=== PATIENT | female | born 1955 | race Caucasian/White ===

== ENCOUNTER 2018-10-20 09:07 | Inpatient (IN) ==
[2018-10-20] MEDS ORDERED: Aspirin 81 MG TAB.CHEW PO ONE (09:17)
[2018-10-20 09:40] LABS: Basophils % 0.5 %; Eosinophils # 0.2 K/mcL (0.0-0.6); Hemoglobin 14.3 g/dL (11.5-15.4); Immature Granulocytes % 0.9 % (0-4); Lymphocytes # 3.2 K/mcL (0.6-4.6); Lymphocytes % 40.2 %; Mean Corpuscular HGB Conc 31.8 g/dL (31.6-35.5); Mean Corpuscular Hemoglobin 28.6 pg (28.0-33.3); Mean Platelet Volume 10.3 fL (9.4-12.4); Monocytes # 0.7 K/mcL (0.0-1.3); Monocytes % 8.5 %; Neutrophils # 3.9 K/mcL (1.6-8.9); Platelet Count 197 K/mcL (140-400); Segmented Neutrophils % 47.9 %
--- NOTE | 2018-10-20 09:44 | Emergency Department Note ---
Disposition Clinical Impression: NSTEMI (non-ST elevated myocardial infarction) Disposition: Admitted As Inpatient Condition: Good Time of Disposition: 10:20 General Adult HPI - General Stated complaint: cp Time Seen by Provider: 10/20/18 09:12 Source: patient, family, EMS Mode of arrival: EMS Limitations: no limitations Nursing Notes Reviewed: Yes Vital Signs Reviewed: Yes - History of Present Illness HPI Narrative: Patient is a 63-year-old female that presents the emergency department with chest pain. Patient states that this is been ongoing since this morning. Patient said last night she developed pain in her teeth and this morning when she got up she had chest pain that radiated to both arms. Patient states that she has some mild shortness of breath and feels sick to her stomach but has not vomited. Patient denies any diaphoresis. Patient denies any worsening with exertion. Patient states that she had had a normal stress test sometime this past winter. Patient states that she has never had any cardiac issues or stents or cardiac catheterization that is been required. Patient states that she does have a history of diabetes, hypercholesterolemia and a family history of CA. Pain Scale: 2 - Related Data Home Medications Medication Instructions Recorded Confirmed ALPRAZolam [Xanax 0.25 MG Tablet] 1 tab PO PRN PRN 06/13/17 10/20/18 Glimepiride [Amaryl] 4 mg PO BID 06/13/17 10/20/18 Insulin ASPART [NovoLOG] 20 unit SQ TIDWM PRN 10/20/18 10/20/18 Allergies Allergy/AdvReac Type Severity Reaction Status Date / Time ciprofloxacin [From Cipro] Allergy Rash Verified 10/20/18 09:14 All systems ED: reviewed and negative except as stated. Constitutional: Denies: fever Cardiovascular: Reports: chest pain Respiratory: Reports: dyspnea Gastrointestinal: Reports: nausea. Denies: vomiting, diarrhea Genitourinary: Denies: urgency, dysuria, frequency Neurological: Denies: weakness, numbness, paresthesias Past Medical History - Past Medical History Medical history: Reports: diabetes, hyperlipidemia, hypertension Surgical history: Reports: cholecystectomy Psychiatric history: Reports: anxiety ACTIVE DIRECTORY SPECIALIST history: Reports: no ACTIVE DIRECTORY SPECIALIST history - Social History Smoking Status: Never smoker Smokeless Tobacco Status: No Alcohol use: Reports: none Drug use: Reports: none Physical Exam - General Limitations: no limitations General appearance: alert, in no apparent distress - Head Head exam: atraumatic, normocephalic - Eye Eye exam: Present: normal appearance, EOMI - Neck Neck exam: Present: normal inspection, full ROM, trachea midline - Respiratory Respiratory exam: Present: normal lung sounds bilaterally. Absent: respiratory distress, wheezes - Cardiovascular Cardiovascular exam: Present: regular rate, normal rhythm, normal heart sounds, +S1, +S2 - Abdominal Exam Abdominal exam: Present: soft, Non-Tender, normal bowel sounds - Neurological Exam Neurological exam: Present: alert, oriented X3 - Psychiatric Psychiatric exam: Present: normal affect, normal mood - Skin Skin exam: Present: warm, dry, intact Course Vital Signs Temperature 98 F 10/20/18 09:14 Pulse Rate 71 10/20/18 09:14 Respiratory Rate 17 10/20/18 09:14 Blood Pressure 150/89 10/20/18 09:14 O2 Sat by Pulse Oximetry 98 10/20/18 09:14 Temperature 98 F 10/20/18 09:14 Pulse Rate 68 10/20/18 10:57 Respiratory Rate 18 10/20/18 10:57 Blood Pressure 135/81 10/20/18 10:57 O2 Sat by Pulse Oximetry 97 10/20/18 10:57 Oxygen Delivery Oxygen Delivery Room Air Medical Decision Making - MDM Narrative Medical decision making narrative: Due the patient is not emergency Department with reports of chest pain we will obtain basic laboratory testing, EKG and chest x-ray. Patient's chest x-ray was negative. EKG showed a sinus rhythm without any acute ischemic changes. The troponin was elevated 0.15. This is new for the patient. Patient did receive nitroglycerin here in the emergency department had complete resolution of her chest pain. Patient family are in agreement with the patient being admitted to the hospital. Patient will be started on ACS low-dose heparin and will be admitted to the medical service. Remainder of her laboratory testing is relatively unremarkable. Called and spoke with the admitting hospitalist Dr. Judd and she is accepted the patient to their service. Patient be admitted to hospital this time for further evaluation and management. - Medical Records Medical records reviewed: Yes I reviewed the patient's medical records. - Lab Data Lab results reviewed: Yes I reviewed the patient's lab results. Result diagrams: 10/21/18 00:39 06/10/19 00:39 Lab Results 10/20/18 10/20/18 10/20/18 Range/Units 09:26 09:26 09:26 WBC 8.0 (4.3-11.1) K/mcL RBC 5.00 H (3.82-4.97) M/mcL Hgb 14.3 (11.5-15.4) g/dL Hct 45.0 H (35.3-44.9) % MCV 90.0 (83.0-100.0) fL MCH 28.6 (28.0-33.3) pg MCHC 31.8 (31.6-35.5) g/dL RDW 14.0 (11.5-14.5) % Plt Count 197 (140-400) K/mcL MPV 10.3 (9.4-12.4) fL Immature Gran % 0.9 (0-4) % Seg Neutrophils % 47.9 % Lymphocytes % 40.2 % Monocytes % 8.5 % Eosinophils % 2.0 % Basophils % 0.5 % Neutrophils # 3.9 (1.6-8.9) K/mcL Lymphocytes # 3.2 (0.6-4.6) K/mcL Monocytes # 0.7 (0.0-1.3) K/mcL Eosinophils # 0.2 (0.0-0.6) K/mcL Basophils # 0.0 (0.0-0.2) K/mcL PT 12.3 H (9.4-12.1) Seconds INR 1.1 APTT 31.2 (26.0-36.0) Seconds D-Dimer 292 (0-500) ng/mLFEU Heparin Anti-Xa, Unfract 0.00 L (0.30-0.70) IU/mL Sodium 136 (136-145) mEq/L Potassium 4.2 (3.5-5.1) mEq/L Chloride 107 (98-107) mEq/L Carbon Dioxide 21 L (23-29) mEq/L BUN 15 (8-23) mg/dL Creatinine 0.81 (0.60-1.20) mg/dL Est GFR ( Amer) > 60 (> 60) Est GFR (Non-Af Amer) > 60 (> 60) BUN/Creatinine Ratio 19 (6-26) Glucose 165 H (70-105) mg/dL Calculated Osmolality 287 (280-300) Calcium 9.4 (8.6-10.3) mg/dL Troponin I 0.15 H* (< 0.04) ng/mL - Radiology Data Radiology results reviewed: Yes I reviewed the patient's radiology results. Chest X-Ray 10/20/18 09:17 IMPRESSION: No acute cardiopulmonary disease. D/ / 10/20/2018 09:45:29 Gurjit Torres MD / Ana Chirinos Interpreting Provider: Gurjit Torres MD - EKG Data EKG #1 EKG attestation: Yes I reviewed and interpreted this EKG. EKG results narrative: EKG shows sinus rhythm at a rate of 73 bpm, NM interval 150, QRS duration 95, QTC of 447. There is no evidence of STEMI on EKG. This is compared to previous EKG on 06/04/17. Attestation Statement - Attestation Attestation: Resident Attestation: I examined this patient and my medical decision making was reviewed with the Resident Physician. I agree with the documented findings, disposition and treatment plan as described except to the extent set forth below. We independently had [id number] contact with the patient.EKG reviewed with resident physician. Agree with documentation. Patient presents for evaluation of chest pain. Patient went to bed last night with pain she describes in her teeth and jaw. Patient will cuff today with chest pain to the center of her chest. Pain was partially relieved with 's nitroglycerin. Patient will be given further nitroglycerin undergo further cardiac evaluation. Patient will likely require admission secondary to risk factors and concern for underlying cardiac disease. No acute distress, regular rate and rhythm, clear to auscultation bilaterally, no swelling to the lower extremities.
[2018-10-20 09:49] LABS: Activated Partial Thrombo Time 31.2 Seconds (26.0-36.0)
[2018-10-20] MEDS: Nitroglycerin 0.4 MG TAB.SUBL SL PRN ×2 (09:50→21:06)
[2018-10-20 10:03] LABS: BUN/Creatinine Ratio 19 (6-26); Blood Urea Nitrogen 15 mg/dL (8-23); Calcium 9.4 mg/dL (8.6-10.3); Carbon Dioxide 21 mEq/L (23-29); Chloride 107 mEq/L (98-107); Glucose 165 mg/dL (70-105); Osmolality,Calculated 287 (280-300); Potassium 4.2 mEq/L (3.5-5.1); Sodium 136 mEq/L (136-145); Troponin I 0.15 ng/mL (< 0.04); eGFR For African Americans > 60 (> 60); eGFR For Non-African Americans > 60 (> 60)
[2018-10-20] MEDS ORDERED: *HR* Heparin 5,000 UNIT/ML VIAL IVP PRN ×2 (10:10)
[2018-10-20] MEDS ORDERED: *HR* Heparin 5,000 UNIT/ML VIAL IVP ONE (10:10)
[2018-10-20 10:31] LABS: INR 1.1; Prothrombin Time 12.3 Seconds (9.4-12.1)
[2018-10-20] MEDS: Heparin 25,000 UNIT/250 ML D5W 25,000 UNIT/250 ML IV.SOLN IVC SCH (10:51)
[2018-10-20] MEDS ORDERED: Naloxone 0.4 MG/ML INJ IVP PRN (13:17)
[2018-10-20] MEDS ORDERED: ALPRAZolam 0.25 MG TABLET PO PRN (13:20)
[2018-10-20] MEDS ORDERED: Dextrose Gel 15 GM/37.5 ML TUBE PO PRN ×2 (13:21)
[2018-10-20] MEDS ORDERED: D5% in Water 1,000 ML IVC PRN (13:21)
[2018-10-20] MEDS ORDERED: *HR* Dextrose 50 % in Water (Syg) 50 ML SYRINGE IVP PRN (13:21)
--- NOTE | 2018-10-20 13:29 | Internal Med History&Physical ---
Date of Encounter: 10/20/18 Time of Encounter: 13:24 Internal Medicine - H&P: HPI Chief complaint: chest pain Admitted From: Home Plans for Post Hospital Care: Home History of present illness: Ms. Llanos is a 63 year old female with PMH HTN and anxiety presented to [facility] on 10/20/18 with complaints of chest pain. She was placed in observation status for further workup and treatment. Information obtained from chart review and patient report. Patient reported experiencing midsternal chest discomfort yesterday evening before she went to bed. 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 She took 2 aspirin and went to bed. When she woke up this morning at 6:00 chest pain was still there along with the lip pain and bilateral arm pain so she took 2 ASA and came to the ER. Still having some mild chest discomfort on my exam. No shortness of breath. Past Med Surg Social Fam HX - Past Medical History Medical history: diabetes, fibromyalgia, hyperlipidemia, hypertension Additional medical history: rosacea. tumor left jaw Psychiatric history: anxiety - Past Surgical History Surgical History: cholecystectomy Additional surgical history: bilateral carple tunnel. jaw surgery with trach - Social History Smoking Status: Never smoker Smokeless Tobacco Status: No Alcohol use: none Drug use: none - Family History Mother Living Status: Age at : 61 Hx Family Cancer: Yes Father Living Status: Age at : 56 Internal Medicine - H&P: Meds ALPRAZolam [Xanax 0.25 MG Tablet] 1 tab PO PRN PRN 06/13/17 [History] Glimepiride [Amaryl] 4 mg PO BID 06/13/17 [History] Insulin ASPART [NovoLOG] 100 unit SQ TIDWM PRN 10/20/18 [History] Allergy/AdvReac Type Severity Reaction Status Date / Time ciprofloxacin [From Cipro] Allergy Rash Verified 10/20/18 09:14 All Systems PM: A 12-system review of systems was performed and is negative for pertinent findings except as documented above in the HPI. - Constitutional Vitals: Temp Pulse Resp BP Pulse Ox 97.4 F L 70 18 138/79 94 10/20/18 11:53 10/20/18 11:53 10/20/18 11:39 10/20/18 11:53 10/20/18 11:53 General appearance: Present: A&O X 3, no acute distress Exam: . - Head Head exam: Present: atraumatic, normocephalic - Eye Eye exam: Present: PERRL, conjuntiva pink, sclera anicteric Pupils: Present: PERRL - Neck Neck exam general surgery: Present: supple, trachea midline. Absent: lymphadenopathy - Respiratory Respiratory exam: Present: CTAB. Absent: accessory muscle use, rales, rhonchi, wheezes - Cardiovascular Cardiovascular exam: Present: RRR, +S1, +S2. Absent: diastolic murmur, gallop, rubs, systolic murmur - GI/Abdominal GI/Abdominal exam: Present: normal bowel sounds, soft, no peritoneal signs. Absent: distended, tenderness - Extremities Exam Extremities exam: Present: warm, radial pulses palpable and symmetrical. Absent: calf tenderness, cyanotic, pedal edema - Neurological Exam Neurological exam: Present: CN II-XII intact, oriented X3, no focal deficits. Absent: pronater drift, facial droop, speech deficit - Skin Skin exam: Present: dry, intact Internal Med - H&P Results - Labs CBC & Chem 7: 10/20/18 09:26 10/20/18 09:26 Labs: Short CBC 10/20/18 Range/Units 09:26 WBC 8.0 (4.3-11.1) K/mcL Hgb 14.3 (11.5-15.4) g/dL Hct 45.0 H (35.3-44.9) % Plt Count 197 (140-400) K/mcL Neutrophils # 3.9 (1.6-8.9) K/mcL BMP 10/20/18 09:26 Sodium 136 Potassium 4.2 Chloride 107 Carbon Dioxide 21 L BUN 15 Creatinine 0.81 Glucose 165 H Calcium 9.4 Cardiac Enzymes 10/20/18 Range/Units 09:26 Troponin I 0.15 H* (< 0.04) ng/mL - Impressions ITS Impressions Chest X-Ray 10/20/18 09:17 IMPRESSION: No acute cardiopulmonary disease. D/ / 10/20/2018 09:45:29 Gurjit Torres MD / Ana Chirinos Interpreting Provider: Gurjit Torres MD - Assessment and Plan (1) NSTEMI (non-ST elevated myocardial infarction) Current Visit: Yes Status: Acute Assessment and plan: presented with chest pain, BUE pain and jaw pain. Initial troponin 0.15. EKG without acute ST changes. Heparin gtt started in ED. Cycle troponin, echo pe nding. Cardiology consulted (2) Anxiety Current Visit: Yes Status: Acute Assessment and plan: per hx. Cont home xanax (3) Diabetes Current Visit: Yes Status: Acute Assessment and plan: per hx. Holding home oral hypogylcemics. SSI. Monitor blood sugar and titrate PRN Qualifiers: Qualified Code(s): E11.9 - Type 2 diabetes mellitus without complications; Z79.4 - long-term (current) use of insulin (4) DVT prophylaxis Current Visit: Yes Status: Acute Assessment and plan: heparin gtt - Time Spent With Patient Total time spent is greater than 50% in coordination of care (as documented) at patient's floor/unit and/or counseling patient:
--- NOTE | 2018-10-20 16:30 | Cardiology Consult Note ---
Date of Encounter: 10/20/18 Time of Encounter: 16:28 Assessment and Plan (1) NSTEMI (non-ST elevated myocardial infarction) Current Visit: Yes Status: Acute Continue aspirin 81 mg daily, IV heparin to therapeutic PTT, beta mathew, high intensity statin. Obtain echocardiogram. For cardiac catheterization tomorrow morning. (2) Hyperlipidemia Current Visit: Yes Status: Chronic Obtain lipid panel (ordered) Qualifiers: Hyperlipidemia type: mixed hyperlipidemia Qualified Code(s): E78.2 - Mixed hyperlipidemia (3) Diabetes Current Visit: Yes Status: Acute Continue insulin. 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 Will need emotional support Discussion w patient/family: The assessment and plan as outlined above was discussed with the patient and/or family members who expressed understanding and agreement. All questions were answered. Thank you for involving us in the care of your patient. Please call with any questions. History of Present Illness Consult date: 10/20/18 Requesting physician: Ryder Gonsales History of present illness: Ms. Llanos is a pleasant 63 year old female with history of hypertension, diabetes, hyperlipidemia, who presented to the emergency room with chest pain th at she described as dull aching which woke her up in the morning at around 6 AM radiating to both arms and the jaw. It was 10 out of 10 in intensity at onset, and improved to 6 out of 10 after the first nitroglycerin was given in the ER, and then 3 out of 10 after the second nitroglycerin. She denies palpitations or shortness of breath. Her father had an [place] at age of 56. Exercise nuclear stress test done for exertional dyspnea in January 2018 was negative for ischemia or infarct, both on the EKG and MPI. Currently she does not feel the initial dull aching chest pain, but just some soreness in the chest. Past Med Surg Social Fam HX - Past Medical History Medical history: diabetes, fibromyalgia, hyperlipidemia, hypertension Additional medical history: rosacea. tumor left jaw Psychiatric history: anxiety - Past Surgical History Surgical History: cholecystectomy Additional surgical history: bilateral carple tunnel. jaw surgery with trach - Social History Smoking Status: Never smoker Smokeless Tobacco Status: No Alcohol use: none Drug use: none - Family History Mother Living Status: Age at : 61 Hx Family Cancer: Yes Father Living Status: Age at : 56 Medications and Allergies ALPRAZolam [Xanax 0.25 MG Tablet] 1 tab PO PRN PRN 06/13/17 [History] Glimepiride [Amaryl] 4 mg PO BID 06/13/17 [History] Insulin ASPART [NovoLOG] 100 unit SQ TIDWM PRN 10/20/18 [History] Allergy/AdvReac Type Severity Reaction Status Date / Time ciprofloxacin [From Cipro] Allergy Rash Verified 10/20/18 09:14 All Systems Review: The remainder of the systems were reviewed and are negative - Constitutional Constitutional: no anorexia, no fever(s) - Cardiovascular Cardiovascular: chest pain with exertion, dyspnea on exertion, no claudication, no dyspnea at rest, no rapid heart rate, no slow heart rate - Respiratory Respiratory: no cough - Gastrointestinal Gastrointestinal: no abdominal pain - Musculoskeletal Musculoskeletal: no muscle weakness - Integumentary Integumentary: no unusual bruising - Neurological Neurological: no abnormal speech - Psychiatric Psychiatric: anxiety - Hematological/Lymphatic Hematologic/Lymphatic: no easy bleeding Physical Examination Vital Signs, Last 4 Hours Temp Pulse BP Pulse Ox 10/20/18 15:24 97.9 F 70 147/89 95 General: Conversant HEENT: Atraumatic Neck: No JVD Cardiac: Reg Rate and Rhythm, Normal S1 and S2, No Murmur Lungs: Normal Breath Sounds, No Wheeze, Rales, Rhonchi Neuro: Alert and responsive Abdomen: Non-Tender Musculoskeletal: No Chest Wall Tenderness Extremities: No Edema, Normal Pulses Results 10/20/18 09:26 10/20/18 09:26 Lab Results 10/20/18 10/20/18 10/20/18 09:26 09:26 09:26 WBC 8.0 Hgb 14.3 Hct 45.0 H Plt Count 197 INR 1.1 APTT 31.2 D-Dimer 292 Sodium 136 Potassium 4.2 Chloride 107 Carbon Dioxide 21 L BUN 15 Creatinine 0.81 Glucose 165 H Calcium 9.4 Troponin I 0.15 H* 10/20/18 13:37 WBC Hgb Hct Plt Count INR APTT D-Dimer Sodium Potassium Chloride Carbon Dioxide BUN Creatinine Glucose Calcium Troponin I 1.50 H* - EKG Interpretation EKG results cardiology: personally reviewed (Sinus rhythm, nonspecific ST-T changes) Consult Discharge Plan - Plan Referrals: Hayden Jordan DO [Primary Care Provider] -
[2018-10-20] MEDS: Insulin LISPRO 300 UNITS/3 ML VIAL SQ SCH ×2 (17:01→21:06)
[2018-10-20] MEDS ORDERED: Acetaminophen 325 MG TABLET PO ONE (21:46)
[2018-10-21 01:00] LABS: Hematocrit 42.6 % (35.3-44.9); Hemoglobin 13.9 g/dL (11.5-15.4); Mean Corpuscular HGB Conc 32.6 g/dL (31.6-35.5); Mean Corpuscular Hemoglobin 28.9 pg (28.0-33.3); Mean Corpuscular Volume 88.6 fL (83.0-100.0); Mean Platelet Volume 10.3 fL (9.4-12.4); Platelet Count 205 K/mcL (140-400); Red Blood Count 4.81 M/mcL (3.82-4.97); Red Cell Distribution Width 13.8 % (11.5-14.5)
[2018-10-21 01:01] LABS: White Blood Count 12.5 K/mcL (4.3-11.1)
[2018-10-21 01:20] LABS: Chol/HDL Ratio 7.4 (0-4.9)
[2018-10-21 01:22] LABS: Alanine Aminotransferase 59 Units/L (7-52); Albumin 4.2 g/dL (3.5-5.7); Albumin/Globulin Ratio 1.4 (1.1-2.2); Alkaline Phosphatase 54 Units/L (34-104); Aspartate Amino Transferase 99 Units/L (13-39); BUN/Creatinine Ratio 16 (6-26); Bilirubin,Total 0.4 mg/dL (0.3-1.0); Blood Urea Nitrogen 13 mg/dL (8-23); Calcium 9.1 mg/dL (8.6-10.3); Carbon Dioxide 21 mEq/L (23-29); Chloride 105 mEq/L (98-107); Globulin 3.1 g/dL (2.4-3.5); Glucose 179 mg/dL (70-105); Osmolality,Calculated 285 (280-300); Potassium 3.9 mEq/L (3.5-5.1); Sodium 135 mEq/L (136-145); Total Protein 7.3 g/dL (6.4-8.9); eGFR For African Americans > 60 (> 60); eGFR For Non-African Americans > 60 (> 60)
[2018-10-21 06:50] LABS: Estimated Average Glucose 163 mg/dl; Hemoglobin A1C 7.3 %
[2018-10-21] MEDS: Aspirin 81 MG TAB.CHEW PO SCH (09:20)
[2018-10-21] MEDS: Insulin LISPRO 300 UNITS/3 ML VIAL SQ SCH ×4 (09:20→21:44)
[2018-10-21] MEDS: Heparin 25,000 UNIT/250 ML D5W 25,000 UNIT/250 ML IV.SOLN IVC SCH (09:20)
--- NOTE | 2018-10-21 12:51 | Internal Med Progress Note ---
Hospitalist Progress Note - Encounter Date of Encounter: 10/21/18 Time of Encounter: 12:51 - Subjective Interval History: Patient is still have chest pain 3 out of 10, constant, across the chest, she denies diaphoresis palpation dizziness. Patient stated that she feels like she is getting UTI, has some burning frequency and intake urination's. She also spiked a fever 100.6. We will check urine culture and blood cultures and then start antibiotics. - Exam Vitals: Temp Pulse Resp BP Pulse Ox 100.9 F H 72 16 142/87 96 10/21/18 11:51 10/21/18 11:51 10/21/18 11:51 10/21/18 11:51 10/21/18 11:51 Exam: . CONSTITUTIONAL: patient appears as an age appropriate female in no acute distress. EYES Clear sclerae, bilateral pupils are equal, reactive to light. EMOI. RESPIRATORY: No accessory muscle use, bilateral clear to auscultation, no wheezing, no crackles/rales. CARDIOVASCULAR: Regular heart rate, normal S1 and S2, no murmurs GASTROINTESTINAL: bowel sounds present, soft, no tenderness. MUSCULOSKELETAL: Joints in normal range of motion, no clubbing, no edema, no cyanosis. Bilateral peripheral pulses 2+. NEUROLOGIC: CN II to XII are grossly intact, no focal neurological deficit. DVT Prophylaxis: Heparin drip - Summary of Assessment and Plan Summary of Assessment and Plan: Ms. Llanos is a 63 year old female with PMH HTN and anxiety presented to [facility] on 10/20/18 with complaints of chest pain. She was placed in observation status for further workup and treatment. She has history of amioblastoma to left jaw that was removed several years ago normally has some left-sided jaw pain but she reported pain to upper lip and lower lip which is different from baseline. She took 2 aspirin and went to bed. When she woke up this morning at 6:00 chest pain was still there along with the lip pain and bilateral arm pain so she took 2 ASA and came to the ER. Still having some mild chest discomfort on my exam. No shortness of breath. Troponin was elevated 7.9. Cardiology was called, she is going to have a left heart catheterization. (1) NSTEMI (non-ST elevated myocardial infarction) Current Visit: Yes Status: Acute Assessment and plan: presented with chest pain, BUE pain and jaw pain. Initial troponin 0.15, 2nd trop up to 7.9. EKG without acute ST changes. Heparin gtt started in ED. cardiology was consulted, getting left heart catheterization today (2) Fever and leukocytosis, lCXR was negative, pending UA, will do BC times 2, start iV ceftriaxone (3) Anxiety and fibromyalgia Current Visit: Yes Status: Acute Assessment and plan: per hx. Cont home xanax (4) Diabetes, on SSI while NPO Current Visit: Yes Status: Acute Assessment and plan: per hx. Holding home oral hypogylcemics. SSI. Monitor blood sugar and titrate PRN Qualifiers: Qualified Code(s): E11.9 - Type 2 diabetes mellitus without complications; Z79.4 - MCFP (current) use of insulin (5) Hyperlipidemia, on lipitor Current Visit: Yes Status: Chronic Obtain lipid panel (ordered) Qualifiers: Hyperlipidemia type: mixed hyperlipidemia Qualified Code(s): E78.2 - Mixed hyperlipidemia (5) Obesity (BMI 30.0-34.9) Current Visit: Yes Status: Acute We discussed lifestyle modification including diet and exercise that we positively impact cardiovascular risk profile (6) DVT prophylaxis, ,heparin drip Current Visit: Yes Status: A - Time Spent with Patient Total time spent is greater than 50% in coordination of care (as documented) at patient's floor/unit and/or counseling patient: 25 - 35 minutes Plan of Care Discussed with: patient Internal Medicine: Result - Labs CBC & Chem 7: 10/21/18 00:39 10/21/18 00:39 Labs: Short CBC 10/21/18 Range/Units 00:39 WBC 12.5 H D (4.3-11.1) K/mcL Hgb 13.9 (11.5-15.4) g/dL Hct 42.6 (35.3-44.9) % Plt Count 205 (140-400) K/mcL BMP 10/21/18 00:39 Sodium 135 L Potassium 3.9 Chloride 105 Carbon Dioxide 21 L BUN 13 Creatinine 0.79 Glucose 179 H Calcium 9.1 Cardiac Enzymes 10/20/18 10/20/18 Range/Units 13:37 19:09 Troponin I 1.50 H* 7.91 H* (< 0.04) ng/mL Liver Function 10/21/18 Range/Units 00:39 Total Bilirubin 0.4 (0.3-1.0) mg/dL AST 99 H (13-39) Units/L ALT 59 H (7-52) Units/L Alkaline Phosphatase 54 (34-104) Units/L Albumin 4.2 (3.5-5.7) g/dL - ABG Interpretation ABG results: PT/INR, D-dimer PT 12.3 Seconds (9.4-12.1) H 10/20/18 09:26 292 ng/mLFEU (0-500) 10/20/18 09:26 - Impressions Impressions Echocardiogram 10/20/18 13:19 Impressions: LVEF 60-65%. Normal LV chamber size, wall thickness and function. Mild left ventricular diastolic dysfunction. Normal right ventricular structure and function. No evidence of pulmonary hypertension. No significant valvular dysfunction. Left Ventricular Wall Motion: Rest Echo Findings All wall segments showed normal motion. Findings: Study Quality * Technically adequate exam. ECG Findings * Normal sinus rhythm. Left Ventricle * LVEF 60-65%. * Normal LV chamber size, wall thickness and function. * Mild left ventricular diastolic dysfunction. Right Ventricle * Normal right ventricular structure and function. Left Atrium * Mildly dilated left atrium. Right Atrium * Normal right atrial size. Interatrial Septum * Interatrial septum not well evaluated. Aortic Valve * Trileaflet aortic valve. * Mildly calcified aortic valve leaflets. * No aortic regurgitation. * No aortic stenosis. Mitral Valve * Mild mitral annular calcification * Trace mitral regurgitation. * No mitral stenosis. Tricuspid Valve * Normal tricuspid valve structure and function. * Trace tricuspid regurgitation. * No evidence of pulmonary hypertension. Pulmonic Valve * Pulmonic valve not well visualized. Aorta * Normally sized aortic root. Pericardium * The pericardium appears normal. IVC * Normal IVC dimensions and inspiratory collapse. Pulmonary Artery * Pulmonary artery not well visualized. Consult Discharge Plan - Plan Referrals: Hayden Jordan DO [Primary Care Provider] -
[2018-10-21] MEDS ORDERED: *HR* Heparin 10,000 UNIT/10 ML VIAL ONE (13:27)
[2018-10-21] MEDS ORDERED: Heparin 1,000 UNITS/500 mL 500 ML ONE (13:27)
[2018-10-21] MEDS ORDERED: ISOVUE-370 200 ML INFUS..BTL ONE (13:27)
[2018-10-21] MEDS ORDERED: Nitroglycerin 1,000 MCG/10 ML VIAL IV ONE (13:27)
[2018-10-21] MEDS ORDERED: 0.9 % Sodium Chloride 2,000 ML ONE (13:27)
[2018-10-21] MEDS ORDERED: *HR* FentaNYL (PF) 100 MCG/2 ML VIAL ONE (13:51)
[2018-10-21] MEDS ORDERED: *HR* Midazolam HCl 2 MG/2 ML VIAL ONE (13:51)
--- NOTE | 2018-10-21 14:03 | Pre-Sedation Evaluation ---
Pre-sedation evaluation - Pre-sedation checklist Date of procedure: 10/21/18 Procedure: left heart cath Recent Vitals: Last Vital Signs Temp 100.9 F H 10/21/18 11:51 Pulse 72 10/21/18 11:51 Resp 16 10/21/18 11:51 BP 142/87 10/21/18 11:51 Pulse Ox 96 10/21/18 11:51 H&P (including ROS) documented in medical record: Yes Previous reaction to sedatives/anesthetics: No Dietary Status: NPO after Midnight ASA Classification *see protocol: CLASS II-Mild systemic disease Cardiac Registry (Cardio Only) - Functional Capacity Functional Capacity: >=4 METS without symptoms - Clincal Frailty Scale Clinical Frailty Scale: Managing Well
--- NOTE | 2018-10-21 14:45 | Invasive Diagnostic Lab Proc ---
Name: Abigail Llanos Date of Study: 10/21/2018 Date: 1955 Ht: 65.0in Medical Record#: [id number] Age: 63 Wt: 205.47lb Gender: Female BSA: 2. Order #: [id number] BMI: 34.19 Physicians Procedure Physician: Nandini Mckeon MD Referring MD: Referring MD: Staff Name Position Time In Viv Waldrop RT Monitor 01:52 PM Mary Rice RN Layout Technician 01:52 PM Vivian Lebron RT (R) Scrub 01:52 PM Shraddha Jefferson RT (R) Scrub 01:52 PM Indications Indication Non-Stemi Procedures Performed Procedure L HRT ARTERY/VENTRICLE ANGIO Pre-Procedure Checklist Informed consent is complete signed and on chart. H&P is on chart. ID band is on and ID verified with patient. Patient NPO for procedure The procedure was described for the patient and questions were answered. ECG is on chart. Plan of Care Patient will tolerate the procedure without complications. Adequate level of comfort will be maintained. Hemodynamics will remain stable Patient will recover from procedure without complications. Respiratory function will be maintained. Cardiac rhythm will remain stable. Patient temperature will be maintained. Patient and/or family have verbalized understanding of the procedure. Patient Education Intravenous Access Time IV Size Location DC'd Fluid/Drip Rate Units RN 08:38 AM 20g 1 1/" Patent On Arrival 0.9NaCl 25 ml/hr Mray Rice RN Allergies ciprofloxacin Vital Signs Time BP (mmHg) HR (bpm) O2 Sat. RR (bpm) LOC 01:53 PM / % 5 = Fully awake and oriented or at pre-proc level 01:53 PM / % 4 = Oriented but drowsy 02:09 PM / % 4 = Oriented but drowsy 01:57 PM 153 / 83 76 97 % 27 02:01 PM 147 / 85 74 97 % 29 02:06 PM 147 / 84 78 97 % 28 02:11 PM 152 / 87 79 97 % 02:16 PM 161 / 89 83 97 % 20 02:21 PM 150 / 84 80 97 % 6 02:26 PM 138 / 83 76 96 % 7 Procedural Medications Time Medication Dose Units Method Given By 02:06 PM Lidocaine 2% 20 ml Subcutaneous Nandini Mckeon MD ASA Classification: CLASS II- Mild systemic disease (i.e. well-controlled diabetes, hypertension, asthma, cigarette smoking) Jelani Score Preprocedure Postprocedure Activity 2- Moves 4 extremities sustained head lift Activity 2- Moves 4 extremities sustained head lift Circulation 2- SBP +/= 20 points of pre-anesthetic level Circulation 2- SBP +/= 20 points of pre-anesthetic level Consciousness 2- Awake and alert oriented x 3 Consciousness 2- Awake and alert oriented x 3 O2 Saturation 2- Able to maintain O2 satruation of 92% on room air O2 Saturation 2- Able to maintain O2 satruation of 92% on room air Respiratory 2- Able to deep breathe and cough well Respiratory 2- Able to deep breathe and cough well Total Score 10 Total Score 10 Contrast Agent: Isovue Diagnostic Contrast: 50 ml Total Contrast: 50 ml Fluoro Dose: 20 mGy Procedure Log Time Note Enter By 01:50 PM Pt extremely drowsy upon arrival to the lab kk:52 PM Pt arrived to recyclable materials sorter 2 at 13:52 : PM Viv Waldrop Position: Monitor Time in: : PM Mary Rice RN Position: Layout Technician Time in: 13:52 :52 PM Vivian Lebron RT (R) Position: Scrub Time in: :52 52 PM Shraddha Jefferson RT (R) Position: Scrub Time in: 13:52 :52 PM Patient charges- Angio tray pack, Navilyst 3mm J, Pulse Oximetry and ACIST tubing and transducer kk: PM Case Delayed No PM Hair removed from procedure site in procedure lab using clippers. Bilateral groin prepped with Chloraprep by Viv Waldrop, then patient was draped. Skin intact. kk:52 PM Physician arrived 13:52 kkallner :52 PM ASA Class CLASS II- Mild systemic disease (i.e. well-controlled diabetes, hypertension, asthma, cigarette smoking) kkall:52 PM Meet and greet completed :52 PM Sign in performed according to hospital policy. Informed consent was obtained. :52 PM Procedure start :52 53 PM Time: 13:53 Patient comfortable and pain free: Yes kkallner 01:53 PM Time: 13:53LOC: 5 = Fully awake and oriented or at pre-proc level kkallner 01:55 PM Vitals capture started with the following parameters, Patient=Adult, Interval=5 min, Initial Chglptly=986 mmHg, Deflation Rate=5 mmHg, Cuff placed on Left Arm 01:55 PM Recorded ECG: HR=76 Condition=Condition 1 01:57 PM HR=76 bpm, RAJN=010/83 mmhg, SpO2=97 %, Resp=27 B/min 01:57 PM Reference ECG taken 02:01 PM HR=74 bpm, QPMP=334/85 mmhg, SpO2=97.0 %, Resp=29 B/min 02:06 PM HR=78 bpm, ZXHH=819/84 mmhg, SpO2=97.0 %, Resp=28 B/min 02:06 PM Clinical Presentation: Non-STEMI kkallner 02:06 PM Time out was performed according to hospital policy. Conscious sedation and anesthesia was achieved (see medication log with in this report above) kkallner 02:07 PM Time: 14:06 20 ml Lidocaine 2% to right groin Subcutaneous Given by Nandini Mckeon MD kkallner 02:09 PM Time: 13:53LOC: 4 = Oriented but drowsy kkallner 02:09 PM Time: 13:53 Patient comfortable and pain free: Yes kkallner 02:10 PM Access obtained by percutaneous puncture. 6Fr 10cm Terumo Salvisa sheath placed in right Femoral artery. [id number] kkallner 02:10 PM 5Fr FR 4 catheter inserted over the wire DN kkallner 02:10 PM wire removed kkallner 02:10 PM RCA angiography performed in multiple views. kkallner 02:11 PM Catheter removed kkallner 02:11 PM 5Fr FL 4 catheter inserted over the wire DN kkallner 02:11 PM wire removed kkallner 02:11 PM HR=79 bpm, WCGO=055/87 mmhg, SpO2=97.0 % 02:12 PM Recorded Pressure: Ao, HR=79, Condition=Condition 1 (Aorta) Ao 150/83/111 02:12 PM LCA angiography performed in multiple views. kkallner 02:13 PM 5Fr Pigtail catheter inserted over the wire [facility] kkallner 02:14 PM Catheter crossed the aortic valve and was selectively placed in the left ventricle. Pressures recorded on pullback for left heart catheterization. kkallner 02:15 PM Coronary Dominance: right kkallner 02:15 PM Recorded Pressure: LV, HR=80, Condition=Condition 1 (Left Ventricle) LV 141/11/13 02:16 PM HR=83 bpm, HSUM=052/89 mmhg, SpO2=97.0 %, Resp=20 B/min 02:16 PM Recorded Pressure: LV, Ao, HR=83, Condition=Condition 1 (Left Ventricle) LV 147/2/15, (Aorta) Ao 149/81/110 02:[address] surgeon paged kkallner 02:18 PM Lesion found in Distal LMCA. Pre Stenosis: 60 Pre MOIZ Flow: kkallner 02:19 PM Lesion found in Proximal LAD. Pre Stenosis: 60 Pre MOIZ Flow: kkallner 02:19 PM Lesion found in Mid LAD. Pre Stenosis: 80 Pre MOIZ Flow: kkallner 02:19 PM Lesion found in Distal Circumflex. Pre Stenosis: 99 Pre MOIZ Flow: kkallner 02:20 PM Lesion found in Distal RCA. Pre Stenosis: 70 Pre MOIZ Flow: kkallner 02:21 PM Left Main Coronary Artery with 60% stenosis kkallner 02:21 PM Proximal Left Anterior Descending Coronary Artery with 60% stenosis. If graft is supplying this territory, 0 % stenosis. kkallner 02:21 PM Mid/Distal Left Anterior Descending Coronary Artery and diagonal branches with 80% stenosis. If graft is supplying this area, 0 % stenosis kkallner 02:21 PM Circumflex, Obtuse Marginal, Left Posterior Descending, and Left Posterolateral Coronary Arteries with 99 % stenosis. If graft is supplying this area, 0 % stenosis kkallner 02:21 PM Right Coronary, Right Posterior Descending Arteries with Right Posterolateral and Acute Marginal branches with 70 % stenosis. If graft is supplying this area, 0 % stenosis kkallner 02:21 PM Ramus with 0% stenosis. If graft is supplying this area, 0 % stenosis kkallner 02:21 PM HR=80 bpm, TWAZ=832/84 mmhg, SpO2=97.0 %, Resp=6 B/min 02:21 PM Procedure completed at 14:21 10/21/2018 kkallner 02:21 PM Did you address MOIZ flow and Dominance? YesCoronary Dominance: right kkallner 02: PM Sign out completed: Radiation Dose 147.90 mGy, 20.3 Gy/cm2 Fluoro Time: 1.3 Isovue 370 - 200ml contrast 50 ml given by Nandini Mckeon MD. Complications: None. The patient was discharged out of the medical laboratory technologist in stable condition. Sedation minutes 0. Cardiac Rehab Consult needed: No. Confirmed administered medications: Yes kkallner : PM Dr. Mora called and is aware of consult kkallner : PM Isovue 370 - 200ml,1 Bottle(s) used. kkallner 02:23 PM Arterial sheath pulled, Mynx closure device used and was Successful [id number] S/N. kkallner :23 PM Estimated Blood Loss: minimal kkallner 02:23 PM Post ECG NSR kkallner 02:23 PM Post Blood Pressure 150/84 kkallner 02:24 PM 14:23 Post Pulses Bilateral DP & PT 2+ kkallner 02:24 PM Information taught Cardiac Cath and Mynx kkallner :25 PM Time: 14:09 Patient comfortable and pain free: Yes kkall:25 PM Time: 14:09LOC: 4 = Oriented but drowsy kkall 02:26 PM HR=76 bpm, OPQJ=770/83 mmhg, SpO2=96.0 %, Resp=7 B/min 02:26 PM Lesion found in Mid RCA. Pre Stenosis: 50 Pre MOIZ Flow: kkall: PM Lesion found in 1st Marginal. Pre Stenosis: 80 Pre MOIZ Flow: kkallner 02: PM Education needs Procedure, Plan of Care, and Responsibilities of Patient in Care kkall: PM Learning barriers :None kkallner :27 PM Education Methods Verbal kkallner : PM Education evaluation Able to repeat information kkall: PM Site status No bleeding/hematoma - Rt Groin as reported by Vivian Lebron RT (R) at 14:28 kkallner 02:28 PM Opsite applied kkallner 02: PM Opsite applied kkallner 02: PM Plavix, Effient or Brilinta given No kkallner 02:29 PM Delay to floor No kkallner 02:29 PM Patient out of room: 14:29 kkallner 02:29 PM Family placed in consult room. kkallner 02:29 PM Complications: None cody 02:36 PM Report given to Jennifer ALEGRE Pt taken to 2NE Room #21. 14:36 cody Complications Complication None None Hemodynamics Pressures Site Systolic/A Wave Diastolic/V Wave Mean AO 150 83 111 LV 141 11 13 LV 147 2 15 AO 149 81 110 Post Procedure Information Blood Pressure: 150/84 mmHg Rhythm: NSR Post procedural instructions were given Surgery consult for CABG Closure Device Time Device Success/Fail 10/21/2018 2:31:00 PM MynxGrip Site Checks Time Location Status Staff Sheath In? Note 02:28 PM Rt Groin No bleeding/hematoma Vivian Lebron RT (R) Pulses Time Site Pre-Procedure Post-Procedure Note 10/21/2018 8:38:00 AM Bilateral DP & PT 2+ 10/21/2018 8:38:00 AM Bilateral radial 2+ 2:23:00 PM Bilateral DP & PT 2+ Updated by Viv Waldrop, RT (R) on 10/21/2018 2:36:31 PM electronically signed on 10/21/2018 2:37:28 PM with status of Final
[2018-10-21] MEDS: cefTRIAXone 1,000 MG in Water for inj. (sterile) 20 ML 20 ML IVP SCH (15:35)
--- NOTE | 2018-10-21 16:45 | Cardiothoracic Consult Note ---
Date of Encounter: 10/21/18 Time of Encounter: 16:42 Assessment and Plan (1) NSTEMI (non-ST elevated myocardial infarction) Current Visit: Yes Status: Acute The assessment and plan as outlined above was discussed with the patient and/or family members who expressed understanding and agreement. All questions were answered. I did discuss this case with Dr. Kelly and the patient and her family. I do not feel that the circumflex coronary artery is graftable. The LAD has a 60% ostial lesion. The distal third of the LAD is diffusely diseased and looks to be a poor candidate for grafting. The distal third of the right coronary artery is also diffusely diseased and again looks to be a poor candidate for grafting. I favor angioplasty with stent. - History of Present Illness History of present illness: Ms. Llanos is a 63 year old female The patient is a 63-year-old female who presented with chest and jaw pain and a troponin up to 7.91. Echocardiogram revealed an ejection fraction of 60-65% and no valvular disease. Cardiac catheterization revealed a 60% ostial LAD lesion and 100% blocked of the circumflex. The circumflex does not fill well and does not look to be bypassable. The distal third of the LAD has diffuse diabetic disease does not appear to be a good vessel for grafting. The patient also had a 70% distal right coronary artery lesion. However the distal third of the right coronary artery was small and diffusely diseased and looked to be a poor candidate for grafting. Past medical history is notable for anxiety and diabetes on insulin. She did have a stress test in March 2018 that was negative. She does have hypercholesterolemia. 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 She also had a trach during this time. Family history strongly positive for coronary artery disease. Social history. She lives in [place]. Does not smoke and does not drink. Review of systems is negative for stroke or TIA. Negative for saphenous vein varicosities or strippings. Past Med Surg Social Fam HX - Past Medical History Medical history: diabetes, fibromyalgia, hyperlipidemia, hypertension Additional medical history: rosacea. tumor left jaw Psychiatric history: anxiety - Past Surgical History Surgical History: cholecystectomy Additional surgical history: bilateral carple tunnel. jaw surgery with trach - Social History Smoking Status: Never smoker Smokeless Tobacco Status: No Alcohol use: none Drug use: none - Family History Mother Living Status: Age at : 61 Hx Family Cancer: Yes Father Living Status: Age at : 56 Medications and Allergies ALPRAZolam [Xanax 0.25 MG Tablet] 1 tab PO PRN PRN 06/13/17 [History] Glimepiride [Amaryl] 4 mg PO BID 06/13/17 [History] Insulin ASPART [NovoLOG] 20 unit SQ TIDWM PRN 10/20/18 [History] Allergy/AdvReac Type Severity Reaction Status Date / Time ciprofloxacin [From Cipro] Allergy Rash Verified 10/20/18 09:14 All Systems Review: The remainder of the systems were reviewed and are negative Physical Examination Vital Signs, Last 4 Hours Temp Pulse Resp BP Pulse Ox 10/21/18 16:20 73 147/80 96 10/21/18 16:05 73 139/79 96 10/21/18 15:43 98.7 F 71 16 139/84 94 10/21/18 15:35 75 139/84 96 10/21/18 15:25 72 143/88 96 10/21/18 14:55 72 140/80 96 She is status post a left cataract operation. She has had resection of the left part of her jaw with replacement with a metal plate covered by grafts. Neck is supple. Trachea in the midline. No thyromegaly or carotid bruits. She has a well-healed tracheostomy scar. Lungs are clear to percussion and auscultation. Heart is in a regular rate and rhythm. Abdomen is benign. No tenderness, rebound or guarding. She is status post cholecystectomy. She is status post grafting from her right lower extremity. No saphenous vein varicosities or strippings. Cranial nerves, motor and sensory intact. Results 10/21/18 00:39 10/21/18 00:39 Lab Results, Last 24 hours 10/20/18 10/21/18 10/21/18 19:09 00:39 00:39 WBC 12.5 H D Hgb 13.9 Hct 42.6 Plt Count 205 Sodium Potassium Chloride Carbon Dioxide BUN Creatinine Glucose Calcium Total Bilirubin AST ALT Alkaline Phosphatase Troponin I 7.91 H* B-Natriuretic Peptide 125 H 10/21/18 00:39 WBC Hgb Hct Plt Count Sodium 135 L Potassium 3.9 Chloride 105 Carbon Dioxide 21 L BUN 13 Creatinine 0.79 Glucose 179 H Calcium 9.1 Total Bilirubin 0.4 AST 99 H ALT 59 H Alkaline Phosphatase 54 Troponin I B-Natriuretic Peptide Consult Discharge Plan - Plan Referrals: Hayden Jordan DO [Primary Care Provider] -
--- NOTE | 2018-10-21 16:47 | Invasive Diagnostic Lab Proc ---
Name: Abigail Llanos Date of Study: 10/21/2018 Date: 1955 Ht: 65.0in Medical Record#: [id number] Age: 63 Wt: 205.47lb Gender: Female BSA: 2. Order #: [id number] BMI: 34.19 Physicians Procedure Physician: Nandini Mckeon MD Referring MD: Referring MD: Staff Name Position Time In Viv Waldrop RT Monitor 01:52 PM Mary Rice RN Cushion Maker Hand 01:52 PM Vivian Lebron RT (R) Scrub 01:52 PM Shraddha Jefferson RT (R) Scrub 01:52 PM Indications Indication Non-Stemi Procedures Performed Procedure L HRT ARTERY/VENTRICLE ANGIO Pre-Procedure Checklist Informed consent is complete signed and on chart. H&P is on chart. ID band is on and ID verified with patient. Patient NPO for procedure The procedure was described for the patient and questions were answered. ECG is on chart. Plan of Care Patient will tolerate the procedure without complications. Adequate level of comfort will be maintained. Hemodynamics will remain stable Patient will recover from procedure without complications. Respiratory function will be maintained. Cardiac rhythm will remain stable. Patient temperature will be maintained. Patient and/or family have verbalized understanding of the procedure. Patient Education Intravenous Access Time IV Size Location DC'd Fluid/Drip Rate Units RN 08:38 AM 20g 1 1/" Patent On Arrival 0.9NaCl 25 ml/hr Mary Rice RN Allergies ciprofloxacin Vital Signs Time BP (mmHg) HR (bpm) O2 Sat. RR (bpm) LOC 01:53 PM / % 5 = Fully awake and oriented or at pre-proc level 01:53 PM / % 4 = Oriented but drowsy 02:09 PM / % 4 = Oriented but drowsy 01:57 PM 153 / 83 76 97 % 27 02:01 PM 147 / 85 74 97 % 29 02:06 PM 147 / 84 78 97 % 28 02:11 PM 152 / 87 79 97 % 02:16 PM 161 / 89 83 97 % 20 02:21 PM 150 / 84 80 97 % 6 02:26 PM 138 / 83 76 96 % 7 Procedural Medications Time Medication Dose Units Method Given By 02:06 PM Lidocaine 2% 20 ml Subcutaneous Nandini Mckeon MD ASA Classification: CLASS II- Mild systemic disease (i.e. well-controlled diabetes, hypertension, asthma, cigarette smoking) Jelani Score Preprocedure Postprocedure Activity 2- Moves 4 extremities sustained head lift Activity 2- Moves 4 extremities sustained head lift Circulation 2- SBP +/= 20 points of pre-anesthetic level Circulation 2- SBP +/= 20 points of pre-anesthetic level Consciousness 2- Awake and alert oriented x 3 Consciousness 2- Awake and alert oriented x 3 O2 Saturation 2- Able to maintain O2 satruation of 92% on room air O2 Saturation 2- Able to maintain O2 satruation of 92% on room air Respiratory 2- Able to deep breathe and cough well Respiratory 2- Able to deep breathe and cough well Total Score 10 Total Score 10 Contrast Agent: Isovue Diagnostic Contrast: 50 ml Total Contrast: 50 ml Fluoro Dose: 20 mGy Procedure Log Time Note Enter By 01:50 PM Pt extremely drowsy upon arrival to the lab kk:52 PM 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 Bilateral groin prepped with Chloraprep by Viv Waldrop, then patient was draped. Skin intact. kk:52 PM Physician arrived 13:52 kkallner :52 PM ASA Class CLASS II- Mild systemic disease (i.e. well-controlled diabetes, hypertension, asthma, cigarette smoking) kkall:52 PM Meet and greet completed :52 PM Sign in performed according to hospital policy. Informed consent was obtained. :52 PM Procedure start :52 53 PM Time: 13:53 Patient comfortable and pain free: Yes kkallner 01:53 PM Time: 13:53LOC: 5 = Fully awake and oriented or at pre-proc level kkallner 01:55 PM Vitals capture started with the following parameters, Patient=Adult, Interval=5 min, Initial Wepchlrd=846 mmHg, Deflation Rate=5 mmHg, Cuff placed on Left Arm 01:55 PM Recorded ECG: HR=76 Condition=Condition 1 01:57 PM HR=76 bpm, TLDI=625/83 mmhg, SpO2=97 %, Resp=27 B/min 01:57 PM Reference ECG taken 02:01 PM HR=74 bpm, EIWX=976/85 mmhg, SpO2=97.0 %, Resp=29 B/min 02:06 PM HR=78 bpm, NAQD=678/84 mmhg, SpO2=97.0 %, Resp=28 B/min 02:06 PM Clinical Presentation: Non-STEMI kkallner 02:06 PM Time out was performed according to hospital policy. Conscious sedation and anesthesia was achieved (see medication log with in this report above) kkallner 02:07 PM Time: 14:06 20 ml Lidocaine 2% to right groin Subcutaneous Given by Nandini Mckeon MD kkallner 02:09 PM Time: 13:53LOC: 4 = Oriented but drowsy kkallner 02:09 PM Time: 13:53 Patient comfortable and pain free: Yes kkallner 02:10 PM Access obtained by percutaneous puncture. 6Fr 10cm Terumo [place] sheath placed in right Femoral artery. [id number] kkallner 02:10 PM 5Fr FR 4 catheter inserted over the wire DN kkallner 02:10 PM wire removed kkallner 02:10 PM RCA angiography performed in multiple views. kkallner 02:11 PM Catheter removed kkallner 02:11 PM 5Fr FL 4 catheter inserted over the wire DN kkallner 02:11 PM wire removed kkallner 02:11 PM HR=79 bpm, NQHI=877/87 mmhg, SpO2=97.0 % 02:12 PM Recorded Pressure: Ao, HR=79, Condition=Condition 1 (Aorta) Ao 150/83/111 02:12 PM LCA angiography performed in multiple views. kkallner 02:13 PM 5Fr Pigtail catheter inserted over the wire [facility] kkallner 02:14 PM Catheter crossed the aortic valve and was selectively placed in the left ventricle. Pressures recorded on pullback for left heart catheterization. kkallner 02:15 PM Coronary Dominance: right kkallner 02:15 PM Recorded Pressure: LV, HR=80, Condition=Condition 1 (Left Ventricle) LV 141/11/13 02:16 PM HR=83 bpm, JMNI=393/89 mmhg, SpO2=97.0 %, Resp=20 B/min 02:16 PM Recorded Pressure: LV, Ao, HR=83, Condition=Condition 1 (Left Ventricle) LV 147/2/15, (Aorta) Ao 149/81/110 02:[address] surgeon paged kkallner 02:19 PM Lesion found in Proximal LAD. Pre Stenosis: 60 Pre MOIZ Flow: kkallner 02:19 PM Lesion found in Mid LAD. Pre Stenosis: 80 Pre MOIZ Flow: kkallner 02:19 PM Lesion found in Distal Circumflex. Pre Stenosis: 99 Pre MOIZ Flow: kkallner 02:20 PM Lesion found in Distal RCA. Pre Stenosis: 70 Pre MOIZ Flow: kkallner 02:21 PM Proximal Left Anterior Descending Coronary Artery with 60% stenosis. If graft is supplying this territory, 0 % stenosis. kkallner 02:21 PM Mid/Distal Left Anterior Descending Coronary Artery and diagonal branches with 80% stenosis. If graft is supplying this area, 0 % stenosis kkallner 02:21 PM Circumflex, Obtuse Marginal, Left Posterior Descending, and Left Posterolateral Coronary Arteries with 99 % stenosis. If graft is supplying this area, 0 % stenosis kkallner 02:21 PM Right Coronary, Right Posterior Descending Arteries with Right Posterolateral and Acute Marginal branches with 70 % stenosis. If graft is supplying this area, 0 % stenosis kkallner 02:21 PM Ramus with 0% stenosis. If graft is supplying this area, 0 % stenosis kkallner 02:21 PM HR=80 bpm, VOLR=589/84 mmhg, SpO2=97.0 %, Resp=6 B/min 02:21 PM Procedure completed at 14:21 10/21/2018 kkallner 02:21 PM Did you address MOIZ flow and Dominance? YesCoronary Dominance: right kkallner 02:22 PM Sign out completed: Radiation Dose 147.90 mGy, 20.3 Gy/cm2 Fluoro Time: 1.3 Isovue 370 - 200ml contrast 50 ml given by Nandini Mckeon MD. Complications: None. 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 Sedation minutes 0. Cardiac Rehab Consult needed: No. Confirmed administered medications: Yes kkallner 02:[address] Mora called and is aware of consult kkallner 02:23 PM Isovue 370 - 200ml,1 Bottle(s) used. kkallner 02:23 PM Arterial sheath pulled, Mynx closure device used and was Successful [id number] S/N. kkallner 02:23 PM Estimated Blood Loss: minimal kkallner 02:23 PM Post ECG NSR kkallner 02:23 PM Post Blood Pressure 150/84 kkallner 02:24 PM 14:23 Post Pulses Bilateral DP & PT 2+ kkallner 02:24 PM Information taught Cardiac Cath and Mynx kkall 02:25 PM Time: 14:09 Patient comfortable and pain free: Yes kkall:25 PM Time: 14:09LOC: 4 = Oriented but drowsy kkallner : PM HR=76 bpm, QPLN=723/83 mmhg, SpO2=96.0 %, Resp=7 B/min 02:26 PM Lesion found in Mid RCA. Pre Stenosis: 50 Pre MOIZ Flow: kkall: PM Lesion found in 1st Marginal. Pre Stenosis: 80 Pre MOIZ Flow: kkallner 02:27 PM Education needs Procedure, Plan of Care, and Responsibilities of Patient in Care kkallner 02:27 PM Learning barriers :None kkallner 02:27 PM Education Methods Verbal kkallner :28 PM Education evaluation Able to repeat information kkallner 02:28 PM Site status No bleeding/hematoma - Rt Groin as reported by Vivian Lebron RT (R) at 14:28 kkallner 02:28 PM Opsite applied kkallner 02:28 PM Opsite applied kkallner 02:29 PM Plavix, Effient or Brilinta given No kkallner 02:29 PM Delay to floor No kkallner 02:29 PM Patient out of room: 14:29 kkallner 02:29 PM Family placed in consult room. kkallner 02:29 PM Complications: None kkallner 02:36 PM Report given to Jennifer ALEGRE Pt taken to E Room #21. 14:36 kkallner Complications Complication None None Hemodynamics Pressures Site Systolic/A Wave Diastolic/V Wave Mean AO 150 83 111 LV 141 11 13 LV 147 2 15 AO 149 81 110 Post Procedure Information Blood Pressure: 150/84 mmHg Rhythm: NSR Post procedural instructions were given Surgery consult for CABG Closure Device Time Device Success/Fail 10/21/2018 2:31:00 PM MynxGrip Site Checks Time Location Status Staff Sheath In? Note 02:28 PM Rt Groin No bleeding/hematoma Vivian Lebron RT (R) Pulses Time Site Pre-Procedure Post-Procedure Note 10/21/2018 8:38:00 AM Bilateral DP & PT 2+ 10/21/2018 8:38:00 AM Bilateral radial 2+ 2:23:00 PM Bilateral DP & PT 2+ Updated by Viv Waldrop RT (R) on 10/21/2018 4:38:56 PM electronically signed on 10/21/2018 4:39:45 PM with status of Final
--- NOTE | 2018-10-21 21:21 | Electrocardiograph Report ---
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
--- NOTE | 2018-10-21 21:38 | Electrocardiograph Report ---
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
[2018-10-21] MEDS ORDERED: Acetaminophen 325 MG TABLET PO ONE (21:41)
[2018-10-22 01:11] LABS: Basophils % 0.2 %; Eosinophils % 0.3 %; Hematocrit 40.7 % (35.3-44.9); Hematocrit 42.3 % (35.3-44.9); Hemoglobin 13.4 g/dL (11.5-15.4); Hemoglobin 13.5 g/dL (11.5-15.4); Immature Granulocytes % 0.5 % (0-4); Lymphocytes # 4.6 K/mcL (0.6-4.6); Lymphocytes % 32.3 %; Mean Corpuscular HGB Conc 31.9 g/dL (31.6-35.5); Mean Corpuscular HGB Conc 32.9 g/dL (31.6-35.5); Mean Corpuscular Hemoglobin 28.8 pg (28.0-33.3); Mean Corpuscular Volume 87.3 fL (83.0-100.0); Mean Corpuscular Volume 90.4 fL (83.0-100.0); Mean Platelet Volume 10.2 fL (9.4-12.4); Mean Platelet Volume 10.4 fL (9.4-12.4); Monocytes # 1.5 K/mcL (0.0-1.3); Monocytes % 10.7 %; Neutrophils # 7.9 K/mcL (1.6-8.9); Platelet Count 197 K/mcL (140-400); Platelet Count 205 K/mcL (140-400); Red Blood Count 4.66 M/mcL (3.82-4.97); Red Blood Count 4.68 M/mcL (3.82-4.97); Red Cell Distribution Width 14.1 % (11.5-14.5); White Blood Count 13.7 K/mcL (4.3-11.1); White Blood Count 14.1 K/mcL (4.3-11.1)
[2018-10-22 01:11] LABS: Bilirubin,Urine Negative (Negative); Blood,Urine Negative (Negative); Clarity,Urine Clear (Clear); Color,Urine Yellow (Yellow); Glucose,Urine (UA) 100 mg/dL (Normal); Ketones,Urine Negative (Negative); Leukocyte Esterase,Urine Small (Negative); Nitrite,Urine Negative (Negative); Protein,Urine Negative (Neg-Trace); Specific Gravity,Urine 1.029 (1.010-1.025); Urobilinogen,Urine Normal (Normal)
[2018-10-22 01:23] LABS: Alanine Aminotransferase 43 Units/L (7-52); Albumin/Globulin Ratio 1.3 (1.1-2.2); Alkaline Phosphatase 52 Units/L (34-104); Aspartate Amino Transferase 75 Units/L (13-39); BUN/Creatinine Ratio 16 (6-26); Bilirubin,Total 0.6 mg/dL (0.3-1.0); Blood Urea Nitrogen 10 mg/dL (8-23); Calcium 8.9 mg/dL (8.6-10.3); Carbon Dioxide 22 mEq/L (23-29); Chloride 105 mEq/L (98-107); Glucose 160 mg/dL (70-105); Osmolality,Calculated 284 (280-300); Potassium 3.4 mEq/L (3.5-5.1); Sodium 136 mEq/L (136-145); eGFR For African Americans > 60 (> 60); eGFR For Non-African Americans > 60 (> 60)
[2018-10-22 01:36] LABS: Bacteria,Urine Few per hpf (None-Few); Hyaline Casts,Urine None Seen per lpf (None-Few); RBC,Urine 0-3 per hpf (0-3); Squamous Epithelial Cell,Urine Few per lpf (None-Few)
[2018-10-22] MEDS: Heparin 25,000 UNIT/250 ML D5W 25,000 UNIT/250 ML IV.SOLN IVC SCH (08:28)
[2018-10-22] MEDS: Insulin LISPRO 300 UNITS/3 ML VIAL SQ SCH ×4 (08:57→21:48)
[2018-10-22] MEDS: Aspirin 81 MG TAB.CHEW PO SCH (08:57)
--- NOTE | 2018-10-22 12:14 | Cardiology Progress Note ---
Date of Encounter: 10/22/18 Time of Encounter: 12:00 Assessment and Plan (1) NSTEMI (non-ST elevated myocardial infarction) Current Visit: Yes Status: Acute Patient presented with ACS, ongoing symptoms for 2 days. Peak troponin 7.91. TTE 10/21/18: LVEF 60-65%, mild LVDD, no significant valvular dysfunction, normal wall motion. LHC 10/21/18: severe 3v CAD: 60% pLAD, 80% mLAD, 99% dLCx, 80% OM, 50% mRCA, 70% dRCA--pt. recommended for CABG. CT surgery consulted and felt patient did not have suitable targets for bypass grafts, recommended multi-vessel PCI. Patient and have elected for second opinion for CABG vs. PCI at [facility]. Given AMI and severe CAD, recommend continuation of IV heparin gtt per ACS protocol and inpatient transfer. Will defer transfer to [facility] to primary team. Continue asa, statin, and BB. Please call with questions. (2) Diabetes Current Visit: Yes Status: Acute Qualifiers: Diabetes mellitus type: type 2 Diabetes mellitus personal care attendant insulin use: with senior care use Diabetes mellitus complication status: without complication Qualified Code(s): E11.9 - Type 2 diabetes mellitus without complications; Z79.4 - skilled nursing (current) use of insulin (3) Hyperlipidemia Current Visit: Yes Status: Chronic Start statin therapy--low dose. Patient reports intolerance in the past, will trial low dose. Ideally, increase if tolerated. Qualifiers: Hyperlipidemia type: mixed hyperlipidemia Qualified Code(s): E78.2 - Mixed hyperlipidemia Discussion w patient/family: The assessment and plan as outlined above was discussed with the patient and/or family members who expressed understanding and agreement. All questions were answered. Thank you for involving us in the care of your patient. Please call with any questions. The patient will be discussed and reviewed with Dr. Tanner; changes to be made accordingly. Subjective Principal diagnosis: AMI, NSTEMI Interval history: Seen and examined. Long discussion this morning upon exam regarding results and plan. No chest pain overnight. No issues with cath site. Objective Vital Signs, Last 4 Hours Pulse Resp BP Pulse Ox 10/22/18 11:40 60 16 114/68 92 General: Conversant, No Apparent Distress HEENT: Atraumatic, Normocephaly, Mucus Membranes Moist Neck: No JVD Cardiac: Reg Rate and Rhythm, Normal S1 and S2 Lungs: Normal Breath Sounds Neuro: Alert and responsive Abdomen: Soft Skin: No rashes noted on visualized skin Musculoskeletal: No Chest Wall Tenderness Extremities: No Edema, Normal Pulses Results 10/22/18 00:41 10/22/18 00:41 Lab Results 10/22/18 10/22/18 10/22/18 00:41 00:41 00:41 WBC 13.7 H 14.1 H Hgb 13.5 13.4 Hct 42.3 40.7 Plt Count 205 197 Sodium 136 Potassium 3.4 L Chloride 105 Carbon Dioxide 22 L BUN 10 Creatinine 0.62 Glucose 160 H Calcium 8.9 Magnesium Total Bilirubin 0.6 AST 75 H ALT 43 Alkaline Phosphatase 52 10/22/18 00:41 WBC Hgb Hct Plt Count Sodium Potassium Chloride Carbon Dioxide BUN Creatinine Glucose Calcium Magnesium 1.7 Total Bilirubin AST ALT Alkaline Phosphatase Active Medications Alprazolam (Xanax) 0.25 mg PO DAILY PRN; Protocol PRN Reason: Anxiety Stop: 04/21/19 13:21 Last Admin: 10/20/18 21:00 Dose: 0.25 mg Documented by: Aspirin (Aspirin) 81 mg PO DAILY [facility] Stop: 04/22/19 09:01 Last Admin: 10/22/18 08:57 Dose: 81 mg Documented by: Atorvastatin Calcium (Lipitor) 80 mg PO HS [facility] Stop: 04/21/19 21:01 Last Admin: 10/21/18 21:42 Dose: 80 mg Documented by: Carvedilol (Coreg) 6.25 mg PO BIDWM [facility]ANY[facility]; Protocol Stop: 04/21/19 17:01 Last Admin: 10/22/18 08:57 Dose: 6.25 mg Documented by: Dextrose/Water (Dextrose 50% (Syg)) 25 ml IVP AD PRN PRN Reason: Hypoglycemia Stop: 04/21/19 13:22 Glucagon (Glucagen) 1 mg IM ONCE PRN PRN Reason: Hypoglycemia Stop: 04/21/19 13:22 Glucose (Gluctose) 15 gm PO ONCE PRN PRN Reason: Hypoglycemia Stop: 04/21/19 13:22 Glucose (Gluctose) 30 gm PO ONCE PRN PRN Reason: Hypoglycemia Stop: 04/21/19 13:22 Heparin Sodium (Porcine) (Heparin) 4,000 unit IVP Q6HR PRN PRN Reason: SEE COMMENTS Stop: 04/21/19 10:11 Heparin Sodium (Porcine) (Heparin) 2,000 unit IVP Q6H PRN PRN Reason: SEE COMMENTS Stop: 04/21/19 10:11 Heparin Sodium/Dextrose (Heparin 25,000 Unit/250 Ml D5w) 25,000 unit in 250 mls @ 10.253 mls/hr IVC .Q24H [facility]ANY[facility]; Protocol Stop: 04/21/19 10:16 Last Titration: 10/22/18 08:40 Dose: 15.02 unit/kg/hr, 14 mls/hr Documented by: Dextrose (Dextrose 5%) 1,000 mls @ 100 mls/hr IVC .Q10H PRN PRN Reason: HYPOGLYCEMIA Stop: 04/21/19 13:22 Ceftriaxone Sodium 1,000 mg/ (Sterile Water) 20 mls @ 600 mls/hr IVP Q24H [facility] Stop: 04/22/19 13:01 Last Admin: 10/21/18 15:35 Dose: 600 mls/hr Documented by: Insulin Human Lispro (Humalog) 0 units SQ HS [facility]; Protocol Stop: 04/21/19 21:01 Last Admin: 10/21/18 21:44 Dose: Not Given Documented by: Insulin Human Lispro (Humalog) 0 units SQ TIDAC [facility]; Protocol Stop: 04/21/19 16:31 Last Admin: 10/22/18 11:56 Dose: Not Given Documented by: Naloxone HCl (Narcan) 0.4 mg IVP Q2MPRN PRN PRN Reason: SEE COMMENTS Stop: 04/21/19 13:18 Nitroglycerin (Nitroglycerin) 0.4 mg SL Q5MPRN PRN PRN Reason: Chest Pain Stop: 04/21/19 09:18 Last Admin: 10/20/18 21:06 Dose: 0.4 mg Documented by: - Imaging and Cardiology Echo: report reviewed Other Results: 12 hour tele: avg HR=65 SR. No events noted. - EKG Interpretation EKG results cardiology: personally reviewed Consult Discharge Plan - Plan Referrals: Hayden Jordan DO [Primary Care Provider] -
[2018-10-22] MEDS: cefTRIAXone 1,000 MG in Water for inj. (sterile) 20 ML 20 ML IVP SCH (14:46)
--- NOTE | 2018-10-22 14:58 | Discharge Summary ---
Orders not resulted at time of discharge: Pending orders 10/21/18 13:26 Culture,Blood [BC] Stat 10/22/18 00:25 Culture,Urine [RM] Stat 10/23/18 04:00 CMP [Comprehensive Metabolic Panel] AM 0400 Complete Blood Count w/o Diff [HEME] AM 0400 10/23/18 08:40 Heparin anti-factor XA UFH [COAG] Timed 10/24/18 04:00 CMP [Comprehensive Metabolic Panel] AM 0400 Complete Blood Count w/o Diff [HEME] AM 0400 10/25/18 04:00 CMP [Comprehensive Metabolic Panel] AM 0400 Complete Blood Count w/o Diff [HEME] AM 0400 Date of Encounter: 10/22/18 Time of Encounter: 14:54 - Discharge Diagnosis (1) NSTEMI (non-ST elevated myocardial infarction) Priority: Primary Status: Acute (2) Anxiety Priority: Secondary Status: Chronic (3) Diabetes Priority: Secondary Status: Chronic Qualifiers: Diabetes mellitus type: type 2 Diabetes mellitus care home insulin use: with care home use Diabetes mellitus complication status: without complication Qualified Code(s): E11.9 - Type 2 diabetes mellitus without complications; Z79.4 - [facility]CC (current) use of insulin (4) DVT prophylaxis Priority: Secondary Status: Acute (5) UTI (urinary tract infection) Priority: Secondary Status: Acute Qualifiers: Urinary tract infection type: site unspecified Hematuria presence: without hematuria Qualified Code(s): N39.0 - Urinary tract infection, site not specified (6) Obesity (BMI 30.0-34.9) Priority: Secondary Status: Acute (7) Hyperlipidemia Priority: Secondary Status: Chronic Qualifiers: Hyperlipidemia type: mixed hyperlipidemia Qualified Code(s): E78.2 - Mixed hyperlipidemia Hospital course: Ms. Llanos is a 63 year old female PMH HTN and anxiety presented to [facility] on 10/20/18 with complaints of chest pain. Patient was admitted to the hospital due to chest pain. diagnosed with NSTEMI, patient underwent LHC which reveled severe three vessels disease. CT surgery was consulted and recommended angioplasty with stent placement. Patient and her family requested to be transferred to [facility] for a second opinion. [facility] transferred center has been called and transfer has been coordinated. - Time Spent with Patient Total time spent providing and/or coordinating discharge services: Time spent: Greater than 30 minutes (35) - Discharge Medications Prescriptions: New Aspirin [Lo-Dose Aspirin EC] 81 mg PO DAILY 30 Days #30 tablet. Continued Glimepiride [Amaryl] 4 mg PO BID Insulin ASPART [NovoLOG] 0 unit SQ ACHS Cetirizine HCl [Zyrtec] 10 mg PO DAILY PRN PRN Reason: Allergy Symptoms Home Medications: Glimepiride [Amaryl] 4 mg PO BID 06/13/17 [History] Insulin ASPART [NovoLOG] 0 unit SQ ACHS 10/20/18 [History] Cetirizine HCl [Zyrtec] 10 mg PO DAILY PRN 10/21/18 [History] Aspirin [Lo-Dose Aspirin EC] 81 mg PO DAILY 30 Days #30 tablet. 10/22/18 [Rx] Allergies/Adverse Reactions: Allergy/AdvReac Type Severity Reaction Status Date / Time ciprofloxacin [From Cipro] Allergy Rash Verified 10/20/18 09:14 Date of admission: 10/21/18 12:45 Primary care physician: Hayden Jordan DO Consults: 10/20/18 11:26 Consult to Cardiology [CONS] Stat Comment: Consulting Provider: Cardiology Lluvia Reason for Consult: NSTEMI Call Completed: Yes 10/20/18 12:38 Consult to Pastoral Services [CONS] Routine Comment: 10/21/18 14:40 Consult to Cardiothoracic Surgery [CONS] Routine Consulting Provider: Cardiothoracic Surgery Lluvia Reason for Consult: 3 vessel disease Call Completed: Yes - Constitutional Vitals: Temp Pulse Resp BP Pulse Ox 98.4 F 60 16 114/68 92 10/22/18 03:46 10/22/18 11:40 10/22/18 11:40 10/22/18 11:40 10/22/18 11:40 General appearance: Present: A&O X 3, no acute distress Exam: Vitals: Reviewed General: AOX4, in no distress RESPIRATORY: No accessory muscle use, bilateral clear to auscultation, no wheezing, no crackles/rales. CARDIOVASCULAR: Regular heart rate, normal S1 and S2, no murmurs GASTROINTESTINAL: bowel sounds present, soft, no tenderness. MUSCULOSKELETAL: Joints in normal range of motion, no clubbing, no edema, no cyanosis. Bilateral peripheral pulses 2+. NEUROLOGIC: CN II to XII are grossly intact, no focal neurological deficit. - Patient Status Disposition: Transfer Intermediate Care Fac Condition: Good Functional capacity at discharge: independent ambulation Overall status at discharge: patient is progressing back to baseline - Discharge Instructions Follow Up With: Hayden Jordan DO [Primary Care Provider] - Forms: ED Satisfaction Letter - Diet and Activity Activity: resume usual activities as tolerated Diet: low salt diet
[2018-10-23] MEDS: Heparin 25,000 UNIT/250 ML D5W 25,000 UNIT/250 ML IV.SOLN IVC SCH (04:45)
[2018-10-23] MEDS: Insulin LISPRO 300 UNITS/3 ML VIAL SQ SCH ×3 (08:19→16:08)
[2018-10-23] MEDS: Aspirin 81 MG TAB.CHEW PO SCH (08:21)
[2018-10-23 09:29] LABS: Hematocrit 40.7 % (35.3-44.9); Hemoglobin 12.9 g/dL (11.5-15.4); Mean Corpuscular HGB Conc 31.7 g/dL (31.6-35.5); Mean Corpuscular Hemoglobin 28.5 pg (28.0-33.3); Mean Corpuscular Volume 89.8 fL (83.0-100.0); Mean Platelet Volume 10.5 fL (9.4-12.4); Platelet Count 181 K/mcL (140-400); Red Blood Count 4.53 M/mcL (3.82-4.97); Red Cell Distribution Width 14.5 % (11.5-14.5); White Blood Count 8.1 K/mcL (4.3-11.1)
[2018-10-23 09:45] LABS: Alanine Aminotransferase 33 Units/L (7-52); Albumin 3.9 g/dL (3.5-5.7); Albumin/Globulin Ratio 1.3 (1.1-2.2); Alkaline Phosphatase 50 Units/L (34-104); Aspartate Amino Transferase 34 Units/L (13-39); BUN/Creatinine Ratio 17 (6-26); Bilirubin,Total 0.5 mg/dL (0.3-1.0); Blood Urea Nitrogen 12 mg/dL (8-23); Carbon Dioxide 23 mEq/L (23-29); Chloride 106 mEq/L (98-107); Globulin 3.1 g/dL (2.4-3.5); Glucose 221 mg/dL (70-105); Osmolality,Calculated 287 (280-300); Potassium 3.8 mEq/L (3.5-5.1); Sodium 135 mEq/L (136-145); eGFR For African Americans > 60 (> 60); eGFR For Non-African Americans > 60 (> 60)
--- NOTE | 2018-10-23 10:33 | Event Note ---
Date of Encounter: 10/23/18 Time of Encounter: 10:27 I have seen and evaluated the patient at bedside. patient denies chest pain, nausea or vomiting. denies light headedness or palpitations. denies abdominal pair or diarrhea. Physical exam: Vitals: Reviewed General: Alert and oriented x4. In no distress Cardiovascular: RRR, normal S1 & S2, no rubs, murmurs or gallops. Lungs: CTA b/l, no wheezes or crackles. Abdomen: Soft, non-tender, no rigidity. Extremities: No edema Neurological: No focal neurological deficits Rest of the physical exam is non contributory Assessment: 1. NSTEMI 2. Hypertension 3. T2DM 4. HLD 5. Fibromyalgia 6. VTE prophylaxis 7. UTI Plan: continue heparin drip [facility] has been contracted. Pending transfer on aspirin and a bb continue ceftriaxone 1gm/IV daily Carbs controlled diet continue lispro medium dose sliding scale levemir 5 units HS added On alprazolam Disposition: patient will be transferred to [facility]. Pending a bed for transfer.
[2018-10-23] MEDS: cefTRIAXone 1,000 MG in Water for inj. (sterile) 20 ML 20 ML IVP SCH (12:41)
[2018-10-23 16:04] VITALS: BP 117/72
[2018-10-23] MEDS ORDERED: Insulin DETEMIR 100 UNIT/ML X5UNITS SQ SCH (21:00)
== END 2018-10-23 19:15 | DRG 281 ==
LOC: EMEROOARM 09:07 → 2NENU 09:07 → SUATTDRO 10-21 12:45
PROVIDERS: ADMIT Internal Medicine Nephrology; ATTEND Internal Medicine

== ENCOUNTER 2018-12-27 20:31 | Observation (INO) ==
[2018-12-27 22:02] LABS: Basophils # 0.1 K/mcL (0.0-0.2); Basophils % 0.8 %; Eosinophils # 0.5 K/mcL (0.0-0.6); Eosinophils % 6.2 %; Immature Granulocytes % 0.4 % (0-4); Lymphocytes # 3.1 K/mcL (0.6-4.6); Lymphocytes % 39.7 %; Mean Corpuscular HGB Conc 30.2 g/dL (31.6-35.5); Mean Corpuscular Hemoglobin 27.7 pg (28.0-33.3); Mean Corpuscular Volume 91.5 fL (83.0-100.0); Mean Platelet Volume 9.4 fL (9.4-12.4); Monocytes # 0.7 K/mcL (0.0-1.3); Monocytes % 8.5 %; Neutrophils # 3.4 K/mcL (1.6-8.9); Platelet Count 287 K/mcL (140-400); Red Cell Distribution Width 15.5 % (11.5-14.5); Segmented Neutrophils % 44.4 %; White Blood Count 7.8 K/mcL (4.3-11.1)
[2018-12-27 22:23] LABS: BUN/Creatinine Ratio 22 (6-26); Blood Urea Nitrogen 19 mg/dL (8-23); Calcium 9.8 mg/dL (8.6-10.3); Carbon Dioxide 24 mEq/L (23-29); Chloride 104 mEq/L (98-107); Glucose 99 mg/dL (70-105); Osmolality,Calculated 290 (280-300); Potassium 4.2 mEq/L (3.5-5.1); Sodium 139 mEq/L (136-145); Troponin I < 0.03 ng/mL (< 0.04); eGFR For African Americans > 60 (> 60); eGFR For Non-African Americans > 60 (> 60)
[2018-12-27] MEDS ORDERED: Isovue-370 500 ML BOTTLE IVP ONE (22:41)
[2018-12-28] MEDS ORDERED: Naloxone 0.4 MG/ML INJ IVP PRN (02:09)
[2018-12-28] MEDS ORDERED: Ondansetron 4 MG/2 ML VIAL IVP PRN (02:09)
[2018-12-28] MEDS ORDERED: Dextrose Gel 15 GM/37.5 ML TUBE PO PRN ×2 (02:14)
[2018-12-28] MEDS ORDERED: *HR* Dextrose 50 % in Water (Syg) 50 ML SYRINGE IVP PRN (02:14)
[2018-12-28] MEDS ORDERED: D5% in Water 1,000 ML IVC PRN (02:14)
[2018-12-28] MEDS ORDERED: Loratadine 10 MG TABLET PO PRN (02:14)
[2018-12-28] MEDS ORDERED: Acetaminophen 325 MG TABLET PO PRN (04:36)
[2018-12-28] MEDS ORDERED: *HR* Heparin 5,000 UNIT/ML VIAL SQ SCH (06:00)
[2018-12-28 06:05] LABS: Hematocrit 41.1 % (35.3-44.9); Hemoglobin 12.5 g/dL (11.5-15.4); Mean Corpuscular HGB Conc 30.4 g/dL (31.6-35.5); Mean Corpuscular Volume 91.9 fL (83.0-100.0); Mean Platelet Volume 9.4 fL (9.4-12.4); Platelet Count 262 K/mcL (140-400); Red Blood Count 4.47 M/mcL (3.82-4.97); Red Cell Distribution Width 15.4 % (11.5-14.5); White Blood Count 7.6 K/mcL (4.3-11.1)
[2018-12-28 06:13] LABS: INR 1.3; Prothrombin Time 14.9 Seconds (9.4-12.1)
[2018-12-28 06:15] LABS: Activated Partial Thrombo Time 31.3 Seconds (26.0-36.0)
[2018-12-28 06:47] LABS: BUN/Creatinine Ratio 22 (6-26); Blood Urea Nitrogen 17 mg/dL (8-23); Calcium 9.6 mg/dL (8.6-10.3); Carbon Dioxide 23 mEq/L (23-29); Chloride 104 mEq/L (98-107); Glucose 95 mg/dL (70-105); Osmolality,Calculated 289 (280-300); Potassium 4.2 mEq/L (3.5-5.1); Sodium 139 mEq/L (136-145); Troponin I < 0.03 ng/mL (< 0.04); eGFR For African Americans > 60 (> 60); eGFR For Non-African Americans > 60 (> 60)
[2018-12-28] MEDS: Insulin LISPRO 300 UNITS/3 ML VIAL SQ SCH ×2 (08:57→12:45)
[2018-12-28] MEDS ORDERED: Aspirin Enteric Coated 81 MG Tablet PO SCH (09:00)
[2018-12-28 12:04] VITALS: BP 110/77
[2018-12-28] MEDS: *HR* Amiodarone 200 MG TABLET PO ONE ×2 (12:44→12:49)
[2018-12-29] MEDS ORDERED: *HR* Amiodarone 200 MG TABLET PO SCH (09:00)
== END 2018-12-28 14:34 | disposition home or self-care (01) ==
LOC: EMEROOARM 20:31 → 2NENU 20:31 → SUATTDRO 12-28 01:36 → 2NENU 12-28 02:42
PROVIDERS: ADMIT Internal Medicine Nephrology; ATTEND Internal Medicine